=== PATIENT | male | born 1985 | race Two or more races ===

== ENCOUNTER 2017-07-21 21:44 | Emergency (ER) | payer SELFPAY ==
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
[2017-07-21] MEDS ORDERED: Sodium Chloride 0.9% 1,000 ML IV ONE (21:56)
[2017-07-21] MEDS ORDERED: Morphine 4 MG/ML Syringe IVPUSH ONE (21:56)
[2017-07-21] MEDS ORDERED: Ondansetron 4 MG/2 ML SDV IVPUSH ONE (21:56)
[2017-07-21] MEDS ORDERED: Diphtheria,Pertussis(Acell),Tetanus Vaccine 0.5 ML Syringe IM ONE (21:56)
[2017-07-21] MEDS ORDERED: Morphine 2 MG/ML Syringe ONE (21:59)
[2017-07-21] MEDS ORDERED: Morphine 2 MG/ML Syringe IVPUSH ONE (22:05)
[2017-07-21] MEDS ORDERED: Bacitracin Oint 1 GM U/D Packet TOP ONE (22:08)
[2017-07-21] MEDS ORDERED: Lidocaine 1% 20 ML MDV INJECT ONE (22:11)
[2017-07-21] MEDS ORDERED: HYDROmorphone 2 MG/ML SDV IVPUSH ONE (22:20)
[2017-07-21 22:27] LABS: CHLORIDE,CL 103 mmol/L (98-107); SODIUM,NA 139 mmol/L (136-148)
[2017-07-21] MEDS: Lidocaine 1% 50 ML MDV ONE ×2 (22:29→23:43)
[2017-07-22] MEDS ORDERED: Iopamidol 755 Mg/ML 100 ML Bottle IVPUSH STA (00:19)
[2017-07-22] MEDS ORDERED: Morphine 2 MG/ML Syringe IVPUSH ONE (00:26)
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
== END 2017-07-22 00:35 | disposition other institution (70) ==
LOC: MW.ED 21:44
DX: S82.852A Displaced trimalleolar fracture of left lower leg, initial encounter for closed fracture (principal); S01.81XA Laceration without foreign body of other part of head, initial encounter; S51.012A Laceration without foreign body of left elbow, initial encounter; F10.129 Alcohol abuse with intoxication, unspecified; V86.56XA Driver of dirt bike or motor/cross bike injured in nontraffic accident, initial encounter; Z23 Encounter for immunization
CPT/HCPCS: 70450; 71045; 71260; 72125; 72170; 73590; 73610; 74177; 80053; 84484; 85025; 86850; 86900; 86901; 90471; 90715; 93005; 96361; 96374; 96375; 96376; 99285; G0480; J1170; J2270; J2405; J7040; Q9967